=== PATIENT | female | born 1995 | race Caucasian/White ===

== ENCOUNTER 2016-06-15 12:15 | Emergency (ER) | payer OTHER ==
[2016-06-15 12:30] VITALS: BP 113/66
[2016-06-15 13:43] LABS: Hematocrit 40 % (35-47); Hemoglobin 13.1 g/dl (12.0-16.0); Mean Corpuscular HGB Conc 33 g/dl (31-36); Mean Corpuscular Hemoglobin 30 pg (27-31); Mean Corpuscular Volume 90 fL (80-97); Mean Platelet Volume 9 um3 (7.4-10.4); Red Blood Count 4.43 10^6/ul (4.0-5.4); Red Cell Distribution Width 13 % (10.5-15); White Blood Count 11.2 10^3/ul (3.5-10.8)
--- NOTE | 2016-06-15 13:45 | RAD ---
Indication: LEFT eye redness, swelling, and yellow discharge. Painful to provide. Denies visual disturbance. 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 Comparison: None. Technique: Noncontrast CT through the orbits. Multiplanar reformation. Report: Mild LEFT preseptal soft tissue swelling. No loculated soft tissue abscess collection evident. No inflammatory change evident within the post septal orbital contents. The orbital and maxillary sinus margins, zygomatic arches, lamina papyracea, pterygoid plates, and nasal bones are intact. The partially visualized mandible is intact. Normal temporal mandibular joint alignment. Mild mucosal thickening at the maxillary sinuses inferiorly. Negative for paranasal sinus fluid levels. Clear visualized mastoid air spaces. IMPRESSION: Mild LEFT preseptal soft tissue swelling. No loculated soft tissue abscess collection evident. No evidence for postseptal orbital cellulitis.
[2016-06-15 13:58] LABS: Albumin 4.5 g/dL (3.2-5.2); BUN/Creatinine Ratio 12.2 (8-20); C Reactive Protein 8.7 mg/L (< 5.00); Calcium 9.6 mg/dL (8.6-10.3); EGFR African American 128.7 (>60); EGFR Non-African American 100.1 (>60); Potassium 3.7 mmol/L (3.5-5.0); Total Bilirubin 0.4 mg/dL (0.2-1.0); Total Protein 7.5 g/dL (6.4-8.9)
[2016-06-15] MEDS ORDERED: Acetaminophen TAB* 325 MG PO ONE (14:25)
--- NOTE | 2016-06-15 14:27 | ED ---
Nilo Lynn Karl, scribed for lCaude Roman MD on 06/15/16 at 1252 . Throat Pain/Nasal Congestion - HPI Summary HPI Summary: 21 y/o F presents with eye pain and swelling in her left eye that began yesterday and has since worsened. Pt stated that her left eye became red and swollen yesterday and started to drain yellow fluid today so she went to [facility] and was referred to the ED. Pt stated that she cleaned out the drainage but her eye is still "puffy" and continues to emit a yellowish discharge. Pt reported she is also having pain in her left eye that is aggravated by moving her eye. Hx: left eye ptosis surgery. - History of Current Complaint Chief Complaint: EDEyeProblem Time Seen by Provider: 06/15/16 12:39 Hx Obtained From: Patient Onset/Duration: Gradual Onset, Lasting Days, Worse Since Severity: Moderate - Allergies/Home Medications Allergies/Adverse Reactions: Allergies Allergy/AdvReac Type Severity Reaction Status Date / Time No Known Allergies Allergy Verified 06/15/16 12:30 PMH/Surg Hx/FS Hx/Imm Hx Previously Healthy: Yes Infectious Disease History: No Infectious Disease History: Denies: Traveled Outside the [place] in Last 30 Days - Family History Known Family History: Negative: Cardiac Disease, Hypertension, Diabetes - Social History Alcohol Use: Occasionally Smoking Status (MU): Never Smoked Tobacco Review of Systems Constitutional: Negative Positive: Drainage - left eye, Erythema - left eye, Other - pain/swelling left eye ENT: Negative Cardiovascular: Negative Respiratory: Negative Gastrointestinal: Negative Genitourinary: Negative Musculoskeletal: Negative Skin: Negative Neurological: Negative Psychological: Normal All Other Systems Reviewed And Are Negative: Yes Physical Exam - Summary Physical Exam Summary: Vital signs: Reviewed Gen.: Patient is a well-developed and nourished female in no acute distress. Patient is lying comfortably on the stretcher. Head: Normacephalic and atraumatic Eyes: PERRLA, EOMI x2. Posittive b/l injected conjuntiva. Ears: Right and Left ear canal and TM WNL Nose and mouth: Neck: Supple, no lymphadenopathy, no JVD Lungs: CTA B/L CVS: S1 & S2 present. No murmurs appreciated. ABDOMEN: Soft, non-tender. No signs of distention. No rebound no guarding, and no masses palpated. Bowel sounds are normal. EXTREMITIES: FROM in all major joints, no edema, no cyanosis or clubbing. NEURO: Alert and oriented x 3. No acute neurological deficits. Speech is normal and follows commands. SKIN: Dry and warm Vital Signs On Initial Exam: Initial Vitals Temp Pulse Resp BP Pulse Ox 98.5 F 76 14 113/66 100 06/15/16 12:15 06/15/16 12:15 06/15/16 12:15 06/15/16 12:15 06/15/16 12:15 Diagnostics - Vital Signs Vital Signs Temp Pulse Resp BP Pulse Ox 06/15/16 12:15 98.5 F 76 14 113/66 100 - Laboratory Lab Results: Lab Results 06/15/16 06/15/16 06/15/16 Range/Units 13:30 13:30 13:30 WBC 11.2 H (3.5-10.8) 10^3/ul RBC 4.43 (4.0-5.4) 10^6/ul Hgb 13.1 (12.0-16.0) g/dl Hct 40 (35-47) % MCV 90 (80-97) fL MCH 30 (27-31) pg MCHC 33 (31-36) g/dl RDW 13 (10.5-15) % Plt Count 279 (150-450) 10^3/ul MPV 9 (7.4-10.4) um3 Neut % (Auto) 66.1 (38-83) % Lymph % (Auto) 24.4 L (25-47) % Bucks % (Auto) 7.1 (1-9) % Eos % (Auto) 1.6 (0-6) % Baso % (Auto) 0.8 (0-2) % Absolute Neuts (auto) 7.4 (1.5-7.7) 10^3/ul Absolute Lymphs (auto) 2.7 (1.0-4.8) 10^3/ul Absolute Monos (auto) 0.8 (0-0.8) 10^3/ul Absolute Eos (auto) 0.2 (0-0.6) 10^3/ul Absolute Basos (auto) 0.1 (0-0.2) 10^3/ul Absolute Nucleated RBC 0 10^3/ul Nucleated RBC % 0 Sodium 136 (133-145) mmol/L Potassium 3.7 (3.5-5.0) mmol/L Chloride 103 (101-111) mmol/L Carbon Dioxide 28 (22-32) mmol/L Anion Gap 5 (2-11) mmol/L BUN 9 (6-24) mg/dL Creatinine 0.74 (0.51-0.95) mg/dL Est GFR ( Amer) 128.7 (>60) Est GFR (Non-Af Amer) 100.1 (>60) BUN/Creatinine Ratio 12.2 (8-20) Glucose 94 (70-100) mg/dL Lactic Acid 1.0 (0.5-2.0) mmol/L Calcium 9.6 (8.6-10.3) mg/dL Total Bilirubin 0.40 (0.2-1.0) mg/dL AST 28 (13-39) U/L ALT 23 (7-52) U/L Alkaline Phosphatase 51 (34-104) U/L C-Reactive Protein 8.70 H (< 5.00) mg/L Total Protein 7.5 (6.4-8.9) g/dL Albumin 4.5 (3.2-5.2) g/dL Globulin 3.0 (2-4) g/dL Albumin/Globulin Ratio 1.5 (1-3) Result Diagrams: 06/15/16 13:30 06/15/16 13:30 Lab Statement: Any lab studies that have been ordered have been reviewed, and results considered in the medical decision making process. - CT CT Orbit CT Interpretation: No Acute Changes CT Interpretation Completed By: Radiologist - IMPRESSION: Mild LEFT preseptal soft tissue swelling. No loculated soft tissue abscess collection evident. No evidence for postseptal orbital cellulitis. EENT Course/Dx - Course Assessment/Plan: 21 y/o F presents with eye pain and swelling in her left eye that began yesterday and has since worsened. Pt stated that her left eye became red and swollen yesterday and started to drain yellow fluid today so [facility] and was referred to the ED. Pt stated that she cleaned out the drainage but her eye is still "puffy" and continues to emit a yellowish discharge. Pt reported she is also having pain in her left eye that is aggravated by moving her eye. Hx: left eye ptosis surgery. Blood work WNL. Orbital CT IMPRESSION: Mild LEFT preseptal soft tissue swelling. No loculated soft tissue abscess collection evident. No evidence for postseptal orbital cellulitis. I believe patient has bilateral conjunctivitis. She will be given Ciprofloxacin ophthalmic. I discussed all the findings and test results with the patient. Patient was instructed to return to the emergency room immediately if any of the symptoms return or worsens. Plan of care was discussed with the patient and understands and agrees. All questions were answered at patient satisfaction. There were no further complaints or concerns. P/E: Lungs: CTA B/ L. Good air exchange. No wheezing or crackles heard. CVS: S1 and S2 present. No murmurs appreciated. Patient is alert and oriented x 3. Patient is hemodynamically stable. Patient will be discharged home with follow up PMD in the next 2-3 days - Differential Diagnoses Differential Diagnoses: Cellulitis - conjunctivitis - Diagnoses Provider Diagnoses: Bilateral conjunctivitis Discharge - Discharge Plan Condition: Stable Disposition: HOME Prescriptions: Ciprofloxacin 0.3% OPTH.BENI* [Cipro 0.3% Opth*] 2 drop BOTH EYES Q4H #1 btl The documentation as recorded by the Nilo martin Karl accurately reflects the service I personally performed and the decisions made by me, Claude Roman MD.
== END 2016-06-15 14:41 | disposition home or self-care (01) ==
LOC: ED 12:15
DX: H10.9 Unspecified conjunctivitis (principal); L53.8 Other specified erythematous conditions
CPT/HCPCS: 36415; 70480; 80053; 83605; 85025; 86140; 99282; A9270-GY